=== PATIENT | female | born 1995 | race Caucasian/White ===

== ENCOUNTER → 2024-02-28 11:31 | Outpatient (CLI) | payer MEDICAID, SELFPAY ==
[2024-02-29 12:10] LABS: Varicella IgG Antibody <135 index (Immune >165)
== END ==
PROVIDERS: Referring Provider Nurse Practitioner; Visit Provider Nurse Practitioner
DX: Z11.1 Encounter for screening for respiratory tuberculosis (principal)
CPT/HCPCS: 36415; 86480; 86787